=== PATIENT | male | born 1935 | race African-American/Black ===

== ENCOUNTER 2018-04-05 18:23 | Inpatient (IN) | payer OTHER, MEDICAID ==
[~2018-04-05] VITALS: Ht 165.1 cm; Wt 75.7 kg
[~2018-04-05 18:23] MED LIST: FERR325T6 PO; GLIP5TAB12 PO; METF850T2 PO; MOME13HF INH; PROAIR; SIMV40TA5 PO; SYMBICORT
[2018-04-05 20:21] LABS: BASOPHILS % 0.3 % (0.0-2.0); EOSINOPHILS % 1.4 % (0.0-5.0); HEMATOCRIT. 35.4 % (42.0-52.0); HEMOGLOBIN. 11.8 g/dL (14.0-18.0); LYMPHOCYTES % 20.2 % (20.0-50.0); MEAN CORPUSCULAR HEMOGLOBIN 32.3 pg (28.0-32.0); MEAN CORPUSCULAR VOLUME 96.8 fL (80.0-94.0); MEAN PLATELET VOLUME 8.5 fl (7.4-10.4); MONOCYTES % 8.7 % (2.0-8.0); NEUTROPHILS % 69.4 % (40.0-76.0); PLATELET 188 x1000/uL (130-400); RED BLOOD CELL COUNT 3.66 mill/uL (4.7-6.1); RED CELL DISTRIBUTION WIDTH 12.8 % (11.6-14.6)
[2018-04-05 20:36] LABS: INR 1.1; PROTHROMBIN TIME 11.5 sec (9.1-11.1)
[2018-04-05 20:55] LABS: CHLORIDE 105 mEq/L (98-107)
[2018-04-05] MEDS ORDERED: AMOXICILLIN/POTASSIUM CLAVULANATE 875/125MG TAB PO ONE (21:30)
[2018-04-05] MEDS ORDERED: ASPIRIN 81MG TABLET PO ONE (21:30)
[2018-04-05] MEDS ORDERED: HYDRALAZINE 20MG/ML VIAL IV ONE (21:45)
[2018-04-05 22:03] LABS: CLARITY URINE CLEAR (CLEAR); COLOR URINE YELLOW (YELLOW); KETONES URINE NEGATIVE (NEGATIVE); LEUKOCYTE ESTERASE URINE 2+ (NEGATIVE); NITRITE URINE POSITIVE (NEGATIVE); OCCULT BLOOD URINE NEGATIVE (NEGATIVE); PROTEIN URINE TRACE (NEGATIVE); SPECIFIC GRAVITY URINE 1.017 (1.005-1.030)
[2018-04-05 23:45] VITALS: BP 196/88
[2018-04-06] VITALS: BP 196/88
[2018-04-06] MEDS ORDERED: HYDROCODONE/ACETAMINOPHEN 5/325MG TABLET PO PRN (00:45)
[2018-04-06] MEDS ORDERED: ACETAMINOPHEN 325MG TABLET PO PRN (00:45)
[2018-04-06] MEDS: CLONIDINE 0.1MG TABLET PO PRN ×2 (01:22→12:10)
[2018-04-06] MEDS ORDERED: DEXTROSE 50% WATER 50ML SYRINGE IV PRN (03:30)
[2018-04-06 04:00] VITALS: BP 164/83
[2018-04-06] MEDS: BLOOD SUGAR DIAGNOSTIC STRIP TEST SCH ×4 (06:46→20:59)
[2018-04-06] MEDS: GLIPIZIDE 5MG TABLET PO SCH ×2 (06:51→18:06)
[2018-04-06 06:56] LABS: T4 FREE 0.8 ng/dL (0.76-1.46)
[2018-04-06] MEDS: INSULIN LISPRO 100 UNITS/ML SUBCUT SCH ×4 (07:15→20:58)
[2018-04-06 08:00] VITALS: BP 155/79
[2018-04-06] MEDS: ENOXAPARIN 40MG/0.4ML SYR SUBCUT SCH (08:36)
[2018-04-06] MEDS: ASPIRIN 81MG TABLET PO SCH (08:36)
[2018-04-06] MEDS: FERROUS SULFATE 325MG TABLET PO SCH ×2 (08:36→18:05)
[2018-04-06] MEDS: METFORMIN HCL 850MG TABLET PO SCH ×2 (08:36→18:05)
[2018-04-06] MEDS: AMLODIPINE 5MG TABLET PO SCH ×2 (08:36→21:14)
[2018-04-06 12:00] VITALS: BP 167/83
[2018-04-06] MEDS: LEVOFLOXACIN 500MG PREMIX 100 ML IV SCH (12:10)
[2018-04-06 16:00] VITALS: BP 154/91
[2018-04-06] MEDS ORDERED: ONDANSETRON HCL 4MG TABLET PO PRN (18:00)
[2018-04-06] MEDS ORDERED: ONDANSETRON HCL 4MG/2ML INJ IV NR (18:00)
[2018-04-06] MEDS ORDERED: SIMETHICONE 80MG TABLET CHEW PO PRN (18:30)
[2018-04-06] MEDS ORDERED: HYDRALAZINE 20MG/ML VIAL IV PRN (18:45)
[2018-04-06] MEDS ORDERED: METOCLOPRAMIDE HCL 10MG/2ML VIAL IV PRN (18:45)
[2018-04-06 19:28] LABS: HEMATOCRIT 35.3 % (42.0-52.0); HEMOGLOBIN 11.8 g/dL (14.0-18.0); MEAN CORPUSCULAR VOLUME 95.8 fL (80.0-94.0); PLATELET 187 x1000/uL (130-400); RED BLOOD CELL COUNT 3.68 mill/uL (4.7-6.1); RED CELL DISTRIBUTION WIDTH 12.9 % (11.6-14.6)
[2018-04-06 19:50] LABS: CHLORIDE 105 mEq/L (98-107)
[2018-04-06 20:00] VITALS: BP 159/82
[2018-04-06] MEDS ORDERED: NON FORMULARY PATIENT HOME MED EA XX SCH (21:00)
[2018-04-06] MEDS ORDERED: TEMAZEPAM 15MG CAPSULE PO PRN (21:00)
[2018-04-06] MEDS ORDERED: ATORVASTATIN CALCIUM 10MG TABLET PO SCH ×2 (21:00)
[2018-04-07] VITALS (8 sets, daily range): BP systolic 110–198; BP diastolic 70–98
[2018-04-07] MEDS: BLOOD SUGAR DIAGNOSTIC STRIP TEST SCH ×3 (06:09→16:36)
[2018-04-07] MEDS: GLIPIZIDE 5MG TABLET PO SCH (06:17)
[2018-04-07 06:41] LABS: BASOPHILS % 1.4 % (0.0-2.0); EOSINOPHILS % 4.3 % (0.0-5.0); HEMATOCRIT. 34.4 % (42.0-52.0); HEMOGLOBIN. 11.8 g/dL (14.0-18.0); LYMPHOCYTES % 32.7 % (20.0-50.0); MEAN CORPUSCULAR VOLUME 96.3 fL (80.0-94.0); MEAN PLATELET VOLUME 8.3 fl (7.4-10.4); MONOCYTES % 12.7 % (2.0-8.0); NEUTROPHILS % 48.9 % (40.0-76.0); PLATELET 172 x1000/uL (130-400); RED BLOOD CELL COUNT 3.57 mill/uL (4.7-6.1); RED CELL DISTRIBUTION WIDTH 12.9 % (11.6-14.6)
[2018-04-07] MEDS: INSULIN LISPRO 100 UNITS/ML SUBCUT SCH ×3 (07:15→16:36)
[2018-04-07 07:48] LABS: CHLORIDE 106 mEq/L (98-107)
[2018-04-07] MEDS: ASPIRIN 81MG TABLET PO SCH (08:03)
[2018-04-07] MEDS: FERROUS SULFATE 325MG TABLET PO SCH (08:03)
[2018-04-07] MEDS: METFORMIN HCL 850MG TABLET PO SCH (08:03)
[2018-04-07] MEDS: AMLODIPINE 5MG TABLET PO SCH (08:04)
[2018-04-07] MEDS: ENOXAPARIN 40MG/0.4ML SYR SUBCUT SCH (08:04)
[2018-04-07] MEDS ORDERED: CLOPIDOGREL 75MG TABLET PO SCH (09:00)
[2018-04-07] MEDS: LEVOFLOXACIN 500MG PREMIX 100 ML IV SCH (12:27)
[2018-04-07] MEDS ORDERED: FOLIC ACID 1MG TABLET PO SCH (15:00)
[2018-04-07 15:49] LABS: AMMONIA 32 uMol/L (<32)
[2018-04-07 17:22] LABS: *COCAINE SCREEN URINE NEGATIVE (NEGATIVE); METHADONE URINE SCREEN NEGATIVE (NEGATIVE); OPIATES URINE SCREEN PRESUMTIVE POSITIVE (NEGATIVE); PHENCYCLIDINE URINE SCREEN NEGATIVE (NEGATIVE)
[2018-04-07 17:23] LABS: *AMPHETAMINES SCREEN URINE NEGATIVE (NEGATIVE); *BARBITURATES SCREEN URINE NEGATIVE (NEGATIVE); *BENZODIAZEPINES SCREEN URINE NEGATIVE (NEGATIVE); CANNABINOID URINE SCREEN NEGATIVE (NEGATIVE)
== END 2018-04-07 17:10 | DRG 65 ==
LOC: ER 18:23 → 5WST 21:45 → EDBEDREQTM 21:53 → EDBEDREQ 21:53 → ENRESERV 21:59
PROVIDERS: ADMIT Internal Medicine; ATTEND Internal Medicine
DX: I63.9 Cerebral infarction, unspecified (principal); G81.94 Hemiplegia, unspecified affecting left nondominant side; D68.59 Other primary thrombophilia; N39.0 Urinary tract infection, site not specified; E11.65 Type 2 diabetes mellitus with hyperglycemia; D64.9 Anemia, unspecified; E78.5 Hyperlipidemia, unspecified; I71.4 Abdominal aortic aneurysm, without rupture; B96.1 Klebsiella pneumoniae [K. pneumoniae] as the cause of diseases classified elsewhere; Z86.79 Personal history of other diseases of the circulatory system; Z86.73 Personal history of transient ischemic attack (TIA), and cerebral infarction without residual deficits; Z79.84 Long term (current) use of oral hypoglycemic drugs; Z79.899 Other long term (current) drug therapy
CPT/HCPCS: 36415; 70450; 70551; 71045; 74018; 76775; 80048; 80053; 80061; 80305; 81003; 82140; 82962; 83036; 84439; 84443; 84484; 85025; 85027; 85610; 87040; 87077; 87086; 87186; 92610; 93005; 93306; 93880; 93970; 96374; 97162; 97167; 99285; J0360; J1650; J1956; J2405; J2765

== ENCOUNTER 2022-03-16 13:52 | Inpatient (IN) | payer OTHER, MEDICAID ==
[~2022-03-16] VITALS: Ht 175.3 cm; Wt 70.9 kg
[~2022-03-16 13:52] MED LIST changes: +METF-415 PO; -METF850T2 PO; -PROAIR; +SIMV-46 PO; -SIMV40TA5 PO; -SYMBICORT
[2022-03-16] MEDS ORDERED: SODIUM CHLORIDE 0.9% 250 ML IV ONE (14:30)
[2022-03-16] MEDS ORDERED: IOHEXOL-350 100 ML BOTTLE ONE (14:56)
[2022-03-16 15:45] LABS: BASOPHILS % 0.5 % (0.0-2.0); HEMATOCRIT. 34.5 % (42.0-52.0); HEMOGLOBIN. 11.4 g/dL (14.0-18.0); LYMPHOCYTES % 14.6 % (20.0-50.0); MEAN CORPUSCULAR HEMOGLOBIN 32.2 pg (28.0-32.0); MEAN CORPUSCULAR VOLUME 97.1 fL (80.0-94.0); MEAN PLATELET VOLUME 7.4 fl (7.4-10.4); MONOCYTES % 11.1 % (2.0-8.0); NEUTROPHILS % 73.8 % (40.0-76.0); PLATELET 182 x1000/uL (130-400); RED BLOOD CELL COUNT 3.55 mill/uL (4.7-6.1); RED CELL DISTRIBUTION WIDTH 12.9 % (11.6-14.6)
[2022-03-16 15:52] LABS: CHLORIDE 107 mEq/L (98-107)
[2022-03-16 16:01] LABS: INR 1.2
[2022-03-16 16:12] LABS: CREATINE KINASE 1452 IU/L (39-308); ETHANOL BLOOD < 10 mg/dL; LDL CHOLESTEROL 88 mg/dL (5-100)
[2022-03-16] MEDS ORDERED: ASPIRIN 81MG TABLET PO ONE (18:30)
[2022-03-16] MEDS ORDERED: FUROSEMIDE 20MG/2ML VIAL IVP ONE (18:30)
[2022-03-16 21:00] VITALS: BP 103/63
[2022-03-16] MEDS ORDERED: POTASSIUM CHLORIDE 20MEQ TABLET SR PO NR (23:45)
[2022-03-16] MEDS ORDERED: DEXTROSE 50% WATER 50ML SYRINGE IV PRN (23:45)
[2022-03-17] VITALS: BP 109/71
[2022-03-17] MEDS: CEFTRIAXONE 1,000 MG in DEXTROSE 5% WATER 50 ML IV SCH (03:23)
[2022-03-17 04:00] VITALS: BP 98/57
[2022-03-17 06:59] LABS: CLARITY URINE CLEAR (CLEAR); COLOR URINE YELLOW (YELLOW); KETONES URINE NEGATIVE (NEGATIVE); LEUKOCYTE ESTERASE URINE NEGATIVE (NEGATIVE); NITRITE URINE NEGATIVE (NEGATIVE); OCCULT BLOOD URINE TRACE (NEGATIVE); PROTEIN URINE TRACE (NEGATIVE); SPECIFIC GRAVITY URINE 1.021 (1.005-1.030); UROBILINOGEN URINE 0.2 E.U./dL (0.2-1.0)
[2022-03-17 07:14] LABS: *AMPHETAMINES SCREEN URINE NEGATIVE (NEGATIVE); *BARBITURATES SCREEN URINE NEGATIVE (NEGATIVE); *BENZODIAZEPINES SCREEN URINE NEGATIVE (NEGATIVE); *COCAINE SCREEN URINE NEGATIVE (NEGATIVE); CANNABINOID URINE SCREEN PRESUMTIVE POSITIVE (NEGATIVE); METHADONE URINE SCREEN NEGATIVE (NEGATIVE); OPIATES URINE SCREEN NEGATIVE (NEGATIVE); PHENCYCLIDINE URINE SCREEN NEGATIVE (NEGATIVE)
[2022-03-17] MEDS: BLOOD SUGAR DIAGNOSTIC STRIP TEST SCH ×4 (07:17→21:02)
[2022-03-17] MEDS: ACETAMINOPHEN 325MG TABLET PO PRN (07:19)
[2022-03-17 07:41] LABS: BASOPHILS % 0.6 % (0.0-2.0); EOSINOPHILS % 0.5 % (0.0-5.0); HEMATOCRIT. 35.4 % (42.0-52.0); HEMOGLOBIN. 11.6 g/dL (14.0-18.0); MEAN CORPUSCULAR HEMOGLOBIN 32.1 pg (28.0-32.0); MEAN CORPUSCULAR VOLUME 97.7 fL (80.0-94.0); MEAN PLATELET VOLUME 7.7 fl (7.4-10.4); MONOCYTES % 6.9 % (2.0-8.0); PLATELET 180 x1000/uL (130-400); RED BLOOD CELL COUNT 3.62 mill/uL (4.7-6.1); RED CELL DISTRIBUTION WIDTH 13.1 % (11.6-14.6)
[2022-03-17 08:00] VITALS: BP 109/70
[2022-03-17] MEDS: INSULIN LISPRO 100 UNITS/ML SUBCUT SCH ×4 (08:39→21:06)
[2022-03-17] MEDS: PANTOPRAZOLE 40MG DR TABLET PO SCH (08:40)
[2022-03-17] MEDS: FUROSEMIDE 40MG TABLET PO SCH (08:40)
[2022-03-17] MEDS: POTASSIUM CHLORIDE 20MEQ TABLET SR PO SCH (08:40)
[2022-03-17] MEDS: ASPIRIN 81MG TABLET PO SCH (08:40)
[2022-03-17] MEDS: ENOXAPARIN 40MG/0.4ML SYR SUBCUT SCH (08:40)
[2022-03-17] MEDS ORDERED: ATORVASTATIN CALCIUM 40MG TABLET PO SCH (09:00)
[2022-03-17] MEDS ORDERED: CEFTRIAXONE 1 G PREMIX 50 ML IV SCH (09:00)
[2022-03-17 12:00] VITALS: BP 115/79
[2022-03-17 16:00] VITALS: BP 138/79
[2022-03-17 17:02] LABS: CREATINE KINASE 1911 IU/L (39-308)
[2022-03-17 20:49] VITALS: BP 112/55
[2022-03-18] MEDS: ACETAMINOPHEN 325MG TABLET PO PRN (00:05)
[2022-03-18 00:41] VITALS: BP 97/58
[2022-03-18] MEDS: CEFTRIAXONE 1,000 MG in DEXTROSE 5% WATER 50 ML IV SCH (02:13)
[2022-03-18 04:00] VITALS: BP 135/78
[2022-03-18 06:41] LABS: BASOPHILS % 0.5 % (0.0-2.0); EOSINOPHILS % 3.1 % (0.0-5.0); HEMATOCRIT. 36.1 % (42.0-52.0); LYMPHOCYTES % 22.9 % (20.0-50.0); MEAN CORPUSCULAR HEMOGLOBIN 32.3 pg (28.0-32.0); MEAN CORPUSCULAR VOLUME 97.1 fL (80.0-94.0); MEAN PLATELET VOLUME 7.7 fl (7.4-10.4); NEUTROPHILS % 63.5 % (40.0-76.0); PLATELET 175 x1000/uL (130-400); RED BLOOD CELL COUNT 3.72 mill/uL (4.7-6.1); RED CELL DISTRIBUTION WIDTH 12.9 % (11.6-14.6)
[2022-03-18 06:46] LABS: CHLORIDE 106 mEq/L (98-107)
[2022-03-18] MEDS: BLOOD SUGAR DIAGNOSTIC STRIP TEST SCH ×4 (07:40→21:43)
[2022-03-18 08:00] VITALS: BP 109/73
[2022-03-18] MEDS: INSULIN LISPRO 100 UNITS/ML SUBCUT SCH ×4 (08:07→21:45)
[2022-03-18] MEDS: ASPIRIN 81MG TABLET PO SCH (09:17)
[2022-03-18] MEDS: FUROSEMIDE 40MG TABLET PO SCH (09:17)
[2022-03-18] MEDS: ENOXAPARIN 40MG/0.4ML SYR SUBCUT SCH (09:18)
[2022-03-18] MEDS: PANTOPRAZOLE 40MG DR TABLET PO SCH (09:18)
[2022-03-18] MEDS: POTASSIUM CHLORIDE 20MEQ TABLET SR PO SCH (09:18)
[2022-03-18 12:00] VITALS: BP 119/65
[2022-03-18 16:00] VITALS: BP 125/81
[2022-03-18 20:00] VITALS: BP 118/70
[2022-03-18] MEDS: ATORVASTATIN CALCIUM 40MG TABLET PO SCH (21:43)
[2022-03-19] VITALS: BP 122/72
[2022-03-19] MEDS: CEFTRIAXONE 1,000 MG in DEXTROSE 5% WATER 50 ML IV SCH (02:19)
[2022-03-19 04:00] VITALS: BP 123/76
[2022-03-19 07:03] LABS: BASOPHILS % 0.6 % (0.0-2.0); EOSINOPHILS % 4.6 % (0.0-5.0); HEMOGLOBIN. 11.5 g/dL (14.0-18.0); LYMPHOCYTES % 23.1 % (20.0-50.0); MEAN CORPUSCULAR HEMOGLOBIN 32.3 pg (28.0-32.0); MEAN CORPUSCULAR VOLUME 98.1 fL (80.0-94.0); MEAN PLATELET VOLUME 7.7 fl (7.4-10.4); MONOCYTES % 10.4 % (2.0-8.0); NEUTROPHILS % 61.3 % (40.0-76.0); PLATELET 196 x1000/uL (130-400); RED BLOOD CELL COUNT 3.57 mill/uL (4.7-6.1); RED CELL DISTRIBUTION WIDTH 12.7 % (11.6-14.6)
[2022-03-19] MEDS: BLOOD SUGAR DIAGNOSTIC STRIP TEST SCH ×4 (07:21→21:23)
[2022-03-19] MEDS: INSULIN LISPRO 100 UNITS/ML SUBCUT SCH ×4 (07:50→21:35)
[2022-03-19 08:00] VITALS: BP 130/73
[2022-03-19 08:01] LABS: CHLORIDE 107 mEq/L (98-107)
[2022-03-19] MEDS: FUROSEMIDE 40MG TABLET PO SCH (08:44)
[2022-03-19] MEDS: ENOXAPARIN 40MG/0.4ML SYR SUBCUT SCH (08:44)
[2022-03-19] MEDS: ASPIRIN 81MG TABLET PO SCH (08:44)
[2022-03-19] MEDS: FAMOTIDINE 20MG TABLET PO SCH (08:44)
[2022-03-19] MEDS: POTASSIUM CHLORIDE 20MEQ TABLET SR PO SCH (08:44)
[2022-03-19] MEDS: ACETAMINOPHEN 325MG TABLET PO PRN (08:49)
[2022-03-19] MEDS: CLOPIDOGREL 75MG TABLET PO SCH (10:09)
[2022-03-19 12:00] VITALS: BP 119/71
[2022-03-19 16:00] VITALS: BP 121/75
[2022-03-19] MEDS ORDERED: HYDROCODONE/ACETAMINOPHEN 5/325MG TABLET PO PRN (18:30)
[2022-03-19] MEDS ORDERED: NALOXONE HCL 0.4MG/ML VIAL IV PRN (18:45)
[2022-03-19] MEDS ORDERED: DEXT 5%/0.45% NACL 1000ML 1,000 ML IV SCH (18:45)
[2022-03-19 20:00] VITALS: BP 116/67
[2022-03-19] MEDS: ATORVASTATIN CALCIUM 40MG TABLET PO SCH (21:35)
[2022-03-20] VITALS: BP 109/64
[2022-03-20 04:00] VITALS: BP 119/78
[2022-03-20] MEDS: BLOOD SUGAR DIAGNOSTIC STRIP TEST SCH ×3 (07:19→16:53)
[2022-03-20] MEDS: INSULIN LISPRO 100 UNITS/ML SUBCUT SCH ×3 (07:19→17:15)
[2022-03-20 07:23] LABS: HEMATOCRIT. 35.5 % (42.0-52.0); HEMOGLOBIN. 11.8 g/dL (14.0-18.0); MEAN CORPUSCULAR HEMOGLOBIN 32.4 pg (28.0-32.0); MEAN CORPUSCULAR VOLUME 97.4 fL (80.0-94.0); MEAN PLATELET VOLUME 7.6 fl (7.4-10.4); PLATELET 230 x1000/uL (130-400); RED BLOOD CELL COUNT 3.65 mill/uL (4.7-6.1); RED CELL DISTRIBUTION WIDTH 12.7 % (11.6-14.6)
[2022-03-20 07:27] LABS: CHLORIDE 106 mEq/L (98-107)
[2022-03-20 08:00] VITALS: BP 116/57
[2022-03-20] MEDS: ENOXAPARIN 40MG/0.4ML SYR SUBCUT SCH (08:19)
[2022-03-20] MEDS: FUROSEMIDE 40MG TABLET PO SCH (08:20)
[2022-03-20] MEDS: CLOPIDOGREL 75MG TABLET PO SCH (08:20)
[2022-03-20] MEDS: POTASSIUM CHLORIDE 20MEQ TABLET SR PO SCH (08:20)
[2022-03-20] MEDS: FAMOTIDINE 20MG TABLET PO SCH (08:20)
[2022-03-20] MEDS: ASPIRIN 81MG TABLET PO SCH (08:20)
[2022-03-20] MEDS: ACETAMINOPHEN 325MG TABLET PO PRN ×2 (08:20→13:46)
[2022-03-20] MEDS ORDERED: REGADENOSON 0.4 MG/5 ML IV SCH (09:30)
[2022-03-20 12:00] VITALS: BP 130/68
[2022-03-20 13:17] LABS: PLATELET ESTIMATE NORMAL
[2022-03-20 15:57] VITALS: BP 118/61
[2022-03-20 18:02] VITALS: BP 136/72
== END 2022-03-20 19:00 | disposition home or self-care (01) | DRG 280 ==
LOC: ER 13:52 → EDBEDREQTM 14:27 → EDBEDREQSVC 14:27 → 7WST 17:12 → EDBEDREQTM 17:16 → EDBEDREQ 17:16 → ENRESERV 19:03 → ER 21:55
PROVIDERS: ADMIT Internal Medicine; ATTEND Internal Medicine
DX: I21.4 Non-ST elevation (NSTEMI) myocardial infarction (principal); G93.41 Metabolic encephalopathy; I69.354 Hemiplegia and hemiparesis following cerebral infarction affecting left non-dominant side; I48.91 Unspecified atrial fibrillation; E11.9 Type 2 diabetes mellitus without complications; E78.5 Hyperlipidemia, unspecified; I11.0 Hypertensive heart disease with heart failure; I45.10 Unspecified right bundle-branch block; I50.9 Heart failure, unspecified; Z20.822 Contact with and (suspected) exposure to COVID-19; I71.4 Abdominal aortic aneurysm, without rupture; R79.89 Other specified abnormal findings of blood chemistry; D72.829 Elevated white blood cell count, unspecified; F12.90 Cannabis use, unspecified, uncomplicated; Z82.49 Family history of ischemic heart disease and other diseases of the circulatory system; Z86.79 Personal history of other diseases of the circulatory system
CPT/HCPCS: 36415; 70496; 70498; 70551; 71045; 76775; 78452; 80048; 80053; 80061; 80305; 80320; 81003; 82550; 82962; 83036; 83721; 83880; 84484; 85025; 87077; 87186; 87426; 93005; 93017; 93306; 97162; 99291; A9500; J0696; J1650; J1815; J1940; J2785; J7050; J7060; Q9967; G0480

== ENCOUNTER 2024-03-08 04:36 | Inpatient (IN) | payer MEDICARE, MEDICAID, OTHER ==
[~2024-03-08] VITALS: Ht 165.1 cm; Wt 77.1 kg
[~2024-03-08 04:36] MED LIST changes: +ASPI-1497 MT; +FLUT1BLS3 INH; -GLIP5TAB12 PO; +GLIP5TAB22 PO; +LEVO250T74 MT; +METH4TAB95 MT; -MOME13HF INH
[2024-03-08 05:53] LABS: BASOPHILS % 1.5 % (0.0-2.0); EOSINOPHILS % 0.3 % (0.0-5.0); HEMATOCRIT. 37.7 % (42.0-52.0); HEMOGLOBIN. 12.6 g/dL (14.0-18.0); LYMPHOCYTES % 20.2 % (20.0-50.0); MEAN CORPUSCULAR HEMOGLOBIN 32.8 pg (28.0-32.0); MEAN CORPUSCULAR HGB CONC 33.3 g/dL (31.0-37.0); MEAN CORPUSCULAR VOLUME 98.3 fL (80.0-94.0); MEAN PLATELET VOLUME 9.3 fl (7.4-10.4); MONOCYTES % 13.5 % (2.0-8.0); NEUTROPHILS % 64.5 % (40.0-76.0); PLATELET 215 x1000/uL (130-400); RED BLOOD CELL COUNT 3.83 mill/uL (4.7-6.1); WHITE BLOOD COUNT 8.6 x1000/uL (4.5-11.0)
[2024-03-08 06:04] LABS: CHLORIDE 102 mEq/L (98-107); POTASSIUM 4.6 mEq/L (3.5-5.1); SODIUM 135 mEq/L (136-145)
[2024-03-08 06:05] LABS: CARBON DIOXIDE 26 mEq/L (21-32)
[2024-03-08 06:06] LABS: CALCIUM 9.6 mg/dL (8.7-10.4)
[2024-03-08 06:10] LABS: CREATININE 1.2 mg/dL (0.6-1.3); GLUCOSE 241 mg/dL (70-105); UREA NITROGEN BLOOD 28 mg/dL (9-23)
[2024-03-08 06:23] LABS: CLARITY URINE CLEAR (CLEAR); COLOR URINE YELLOW (YELLOW); GLUCOSE URINE TRACE (NEGATIVE); KETONES URINE NEGATIVE (NEGATIVE); LEUKOCYTE ESTERASE URINE 3+ (NEGATIVE); NITRITE URINE NEGATIVE (NEGATIVE); OCCULT BLOOD URINE TRACE (NEGATIVE); PH URINE 5.5 (4.5-8.0); PROTEIN URINE NEGATIVE (NEGATIVE); UROBILINOGEN URINE 0.2 E.U./dL (0.2-1.0)
[2024-03-08 07:30] LABS: BACTERIA URINE 2+; SQUAMOUS EPITHELIAL CELL URINE 1+ /lpf (RARE/1+); WBC URINE TNTC /hpf (0-2); YEAST URINE 1+
[2024-03-08] MEDS: KETOROLAC 30MG/ML VIAL IV ONE (07:50)
[2024-03-08 08:37] LABS: PROTHROMBIN TIME 11.6 sec (9.6-11.0)
[2024-03-08] MEDS: CEFTRIAXONE 1GM/50ML 50 ML IV ONE (08:57)
[2024-03-08] MEDS: IBUPROFEN 400MG TABLET PO ONE (10:01)
[2024-03-08 17:35] VITALS: BP 140/70; PULSE 88; RESP 18; TEMP 36.5292
[2024-03-08 20:00] VITALS: BP 98/62; PULSE 79; RESP 17; TEMP 36.28068; O2SAT 99
[2024-03-08] MEDS ORDERED: DEXTROSE 50% WATER 50ML SYRINGE IV PRN (20:00)
[2024-03-08] MEDS ORDERED: DOCUSATE SODIUM 100MG CAPSULE PO PRN (20:00)
[2024-03-08] MEDS ORDERED: IPRATROPIUM/ALBUTEROL 0.5-3(2.5)MG/3ML NEB HHN PRN (20:00)
[2024-03-08] MEDS ORDERED: ONDANSETRON HCL 4MG/2ML INJ IV PRN (20:00)
[2024-03-08] MEDS ORDERED: CLONIDINE 0.1MG TABLET PO PRN (20:00)
[2024-03-08] MEDS ORDERED: ACETAMINOPHEN 325MG TABLET PO PRN ×2 (20:00)
[2024-03-08] MEDS ORDERED: NALOXONE HCL 0.4MG/ML VIAL IV PRN (20:15)
[2024-03-08] MEDS ORDERED: HYDROCODONE/ACETAMINOPHEN 5/325MG TABLET PO PRN (20:15)
[2024-03-08] MEDS: METHYLPREDNISOLONE SOD SUCC 40MG/ML (ACT-O-VIAL) IV SCH (21:17)
[2024-03-08] MEDS: ENOXAPARIN 40MG/0.4ML SYR SUBCUT SCH (21:18)
[2024-03-08] MEDS: BLOOD SUGAR DIAGNOSTIC STRIP TEST SCH (21:18)
[2024-03-08] MEDS: INSULIN LISPRO 100 UNITS/ML SUBCUT SCH (21:20)
[2024-03-09] VITALS (11 sets, daily range): BP systolic 109–134; BP diastolic 66–75; PULSE 55–80; RESP 16–20; TEMP 36.114–36.3918; O2SAT 92–100
[2024-03-09] MEDS: IPRATROPIUM/ALBUTEROL 0.5-3(2.5)MG/3ML NEB HHN SCH (00:28)
[2024-03-09 06:24] LABS: EOSINOPHILS % 0.1 % (0.0-5.0); HEMOGLOBIN. 13.1 g/dL (14.0-18.0); LYMPHOCYTES % 17.4 % (20.0-50.0); MEAN CORPUSCULAR HEMOGLOBIN 32.4 pg (28.0-32.0); MEAN CORPUSCULAR HGB CONC 32.8 g/dL (31.0-37.0); MEAN CORPUSCULAR VOLUME 98.8 fL (80.0-94.0); MEAN PLATELET VOLUME 8.7 fl (7.4-10.4); MONOCYTES % 6.3 % (2.0-8.0); NEUTROPHILS % 75.2 % (40.0-76.0); PLATELET 222 x1000/uL (130-400); RED BLOOD CELL COUNT 4.05 mill/uL (4.7-6.1); RED CELL DISTRIBUTION WIDTH 12.9 % (11.6-14.6)
[2024-03-09 06:26] LABS: CHLORIDE 102 mEq/L (98-107); POTASSIUM 4.9 mEq/L (3.5-5.1); SODIUM 134 mEq/L (136-145)
[2024-03-09 06:27] LABS: CALCIUM 8.9 mg/dL (8.7-10.4); CARBON DIOXIDE 29 mEq/L (21-32)
[2024-03-09 06:29] LABS: PROTHROMBIN TIME 11.4 sec (9.6-11.0)
[2024-03-09] MEDS: GLIPIZIDE 5MG TABLET PO SCH (06:30)
[2024-03-09] MEDS: PANTOPRAZOLE 40MG DR TABLET PO SCH (06:30)
[2024-03-09 06:32] LABS: CREATININE 1.3 mg/dL (0.6-1.3); GLUCOSE 291 mg/dL (70-105)
[2024-03-09 06:33] LABS: LDL CHOLESTEROL 126 mg/dL (5-100); TRIGLYCERIDE 161 mg/dL (0-150); UREA NITROGEN BLOOD 31 mg/dL (9-23)
[2024-03-09 06:34] LABS: ALANINE AMINOTRANSFERASE 28 IU/L (10-49); ALBUMIN 3.6 g/dL (3.2-4.8); ASPARTATE AMINOTRANSFERASE 15 IU/L (<34); BILIRUBIN DIRECT 0.1 mg/dL (<=3.0); CHOLESTEROL 205 mg/dL (<200); HDL CHOLESTEROL 59 mg/dL (>55)
[2024-03-09 06:35] LABS: BILIRUBIN TOTAL 0.5 mg/dL (0.1-1.0); PHOSPHORUS 3.3 mg/dL (2.5-4.9); PROTEIN TOTAL 6.4 g/dL (6.0-8.3)
[2024-03-09] MEDS ORDERED: PANTOPRAZOLE SODIUM 40 MG/VIAL IV SCH (09:00)
[2024-03-09] MEDS: ASPIRIN 81MG TABLET PO SCH (09:17)
[2024-03-09] MEDS: PREDNISONE 20MG TABLET PO SCH (09:18)
[2024-03-09] MEDS: CEFTRIAXONE 1GM/50ML 50 ML IV SCH (09:21)
[2024-03-09 10:03] LABS: *AMPHETAMINES SCREEN URINE NEGATIVE (NEGATIVE)
[2024-03-09 10:04] LABS: *BARBITURATES SCREEN URINE NEGATIVE (NEGATIVE); *BENZODIAZEPINES SCREEN URINE NEGATIVE (NEGATIVE); *COCAINE SCREEN URINE NEGATIVE (NEGATIVE); CANNABINOID URINE SCREEN NEGATIVE (NEGATIVE); ECSTASY MDMA SCREEN URINE NEGATIVE (NEGATIVE); METHADONE URINE SCREEN NEGATIVE (NEGATIVE); OPIATES URINE SCREEN NEGATIVE (NEGATIVE); PHENCYCLIDINE URINE SCREEN NEGATIVE (NEGATIVE)
[2024-03-09] MEDS ORDERED: AMOX1TAB16 MT (11:26)
[2024-03-10] VITALS (8 sets, daily range): BP systolic 90–136; BP diastolic 60–76; PULSE 67–80; RESP 15–20; TEMP 36.114–36.44736; O2SAT 20–100
== END 2024-03-10 15:30 | disposition hospice, home (50) | DRG 728 ==
LOC: ER 04:42 → 5WST 09:37 → EDBEDREQ 09:40 → 6EST 18:10
PROVIDERS: ADMIT Internal Medicine; ATTEND Internal Medicine
DX: B37.49 Other urogenital candidiasis (principal); E11.9 Type 2 diabetes mellitus without complications; I10 Essential (primary) hypertension; J44.89 Other specified chronic obstructive pulmonary disease; F17.210 Nicotine dependence, cigarettes, uncomplicated; Z79.899 Other long term (current) drug therapy
CPT/HCPCS: 36415; 80048; 80061; 80076; 80305; 81003; 82962; 83036; 83735; 84100; 85025; 94640; 99285; C1893; J0696; J1650; J1815; J1885; J2920; J7512

== ENCOUNTER 2024-03-31 08:11 | Inpatient (IN) | payer MEDICARE, MEDICAID ==
[~2024-03-31] VITALS: Ht 160 cm; Wt 64.0 kg
[~2024-03-31 08:11] MED LIST changes: +AMOX1TAB16 MT; -LEVO250T74 MT
[2024-03-31 08:44] LABS: HEMATOCRIT. 33.3 % (42.0-52.0); HEMOGLOBIN. 11.1 g/dL (14.0-18.0); MEAN CORPUSCULAR HEMOGLOBIN 31.7 pg (28.0-32.0); MEAN CORPUSCULAR HGB CONC 33.3 g/dL (31.0-37.0); MEAN CORPUSCULAR VOLUME 95.2 fL (80.0-94.0); MEAN PLATELET VOLUME 6.6 fl (7.4-10.4); PLATELET 428 x1000/uL (130-400); RED CELL DISTRIBUTION WIDTH 12.7 % (11.6-14.6)
[2024-03-31 08:50] LABS: DIFFERENTIAL COMMENT 1
[2024-03-31 08:55] LABS: INR 1.1
[2024-03-31 09:15] LABS: CHLORIDE 101 mEq/L (98-107); SODIUM 136 mEq/L (136-145)
[2024-03-31 09:16] LABS: CALCIUM 9.7 mg/dL (8.7-10.4); CARBON DIOXIDE 30 mEq/L (21-32)
[2024-03-31 09:21] LABS: CREATININE 1.2 mg/dL (0.6-1.3); GLUCOSE 224 mg/dL (70-105); TROPONIN I HIGH SENSITIVITY 12 ng/L (3.0-53); UREA NITROGEN BLOOD 16 mg/dL (9-23)
[2024-03-31 09:23] LABS: ALANINE AMINOTRANSFERASE 12 IU/L (10-49); ALBUMIN 4.1 g/dL (3.2-4.8); ASPARTATE AMINOTRANSFERASE 13 IU/L (<34); BILIRUBIN DIRECT 0.2 mg/dL (<=3.0); BILIRUBIN TOTAL 0.7 mg/dL (0.1-1.0); PROTEIN TOTAL 6.7 g/dL (6.0-8.3)
[2024-03-31 10:20] LABS: ATYPICAL LYMPHOCYTES 1; PLATELET ESTIMATE SLIGHTLY INCREASED
[2024-03-31 17:06] LABS: TROPONIN I HIGH SENSITIVITY 13 ng/L (3.0-53)
[2024-03-31 20:00] VITALS: BP 120/76; PULSE 78; RESP 18; TEMP 35.94732; O2SAT 99
[2024-03-31] MEDS: DEXT 5%/0.45% NACL 1000ML 1,000 ML IV SCH (20:30)
[2024-03-31] MEDS ORDERED: DEXTROSE 50% WATER 50ML SYRINGE IV PRN (20:30)
[2024-03-31] MEDS: BLOOD SUGAR DIAGNOSTIC STRIP TEST SCH (21:00)
[2024-03-31 21:30] LABS: HEMOGLOBIN. 11.4 g/dL (14.0-18.0); MEAN CORPUSCULAR HEMOGLOBIN 31.6 pg (28.0-32.0); MEAN CORPUSCULAR HGB CONC 32.7 g/dL (31.0-37.0); MEAN CORPUSCULAR VOLUME 96.7 fL (80.0-94.0); MEAN PLATELET VOLUME 7.4 fl (7.4-10.4); PLATELET 402 x1000/uL (130-400); RED BLOOD CELL COUNT 3.62 mill/uL (4.7-6.1); WHITE BLOOD COUNT 6.6 x1000/uL (4.5-11.0)
[2024-03-31 21:35] LABS: DIFFERENTIAL COMMENT 1
[2024-03-31 22:00] VITALS: BP 120/76; PULSE 78; RESP 18; TEMP 35.9732
[2024-03-31] MEDS: INSULIN LISPRO 100 UNITS/ML SUBCUT SCH (22:22)
[2024-03-31] MEDS: MORPHINE SULFATE 2 MG/ML INJ (NOT FOR IM USE) IV PRN (22:24)
[2024-04-01 08:00] VITALS: BP 134/74; PULSE 82; RESP 20; TEMP 36.28068; O2SAT 97
[2024-04-01 08:01] LABS: CHLORIDE 104 mEq/L (98-107); POTASSIUM 3.7 mEq/L (3.5-5.1); SODIUM 138 mEq/L (136-145)
[2024-04-01 08:02] LABS: CARBON DIOXIDE 27 mEq/L (21-32)
[2024-04-01 08:03] LABS: CALCIUM 9.2 mg/dL (8.7-10.4)
[2024-04-01 08:07] LABS: CREATININE 0.9 mg/dL (0.6-1.3); GLUCOSE 176 mg/dL (70-105); UREA NITROGEN BLOOD 13 mg/dL (9-23)
[2024-04-01] MEDS: PANTOPRAZOLE SODIUM 40 MG/VIAL IV SCH (08:29)
[2024-04-01 09:49] LABS: HEPATITIS B SURFACE ANTIGEN NEGATIVE (Negative)
[2024-04-01 09:54] LABS: HEPATITIS C AB NON REACTIVE (Neg) (Negative)
[2024-04-01] MEDS ORDERED: REGADENOSON 0.4 MG/5 ML IV NR (10:30)
[2024-04-01 12:00] VITALS: BP 120/73; PULSE 77; RESP 19; TEMP 36.16956; O2SAT 96
[2024-04-01] MEDS: ENOXAPARIN 40MG/0.4ML SYR SUBCUT SCH (12:22)
[2024-04-01 16:00] VITALS: BP 125/72; PULSE 80; RESP 20; TEMP 36.16956; O2SAT 97
[2024-04-01 16:59] LABS: PLATELET ESTIMATE SLIGHTLY INCREASED
[2024-04-01 20:00] VITALS: BP 115/67; PULSE 88; RESP 18; TEMP 36.3918; O2SAT 95
[2024-04-02] VITALS (7 sets, daily range): BP systolic 102–138; BP diastolic 44–84; PULSE 66–100; RESP 14–20; TEMP 36.16956–37.05852; O2SAT 96–100
[2024-04-02] MEDS: IPRATROPIUM/ALBUTEROL 0.5-3(2.5)MG/3ML NEB HHN SCH (02:15)
[2024-04-02 08:24] LABS: CHLORIDE 103 mEq/L (98-107); POTASSIUM 3.7 mEq/L (3.5-5.1); SODIUM 136 mEq/L (136-145)
[2024-04-02 08:25] LABS: CARBON DIOXIDE 27 mEq/L (21-32)
[2024-04-02 08:26] LABS: CALCIUM 8.8 mg/dL (8.7-10.4)
[2024-04-02 08:29] LABS: MEAN CORPUSCULAR HEMOGLOBIN 31.9 pg (28.0-32.0); MEAN CORPUSCULAR HGB CONC 33.8 g/dL (31.0-37.0); MEAN CORPUSCULAR VOLUME 94.3 fL (80.0-94.0); MEAN PLATELET VOLUME 7.6 fl (7.4-10.4); PLATELET 353 x1000/uL (130-400); RED BLOOD CELL COUNT 3.02 mill/uL (4.7-6.1); RED CELL DISTRIBUTION WIDTH 12.7 % (11.6-14.6); WHITE BLOOD COUNT 5.8 x1000/uL (4.5-11.0)
[2024-04-02 08:30] LABS: CREATININE 0.9 mg/dL (0.6-1.3); GLUCOSE 271 mg/dL (70-105)
[2024-04-02 08:31] LABS: UREA NITROGEN BLOOD 12 mg/dL (9-23)
[2024-04-02 08:33] LABS: DIFFERENTIAL COMMENT 1
[2024-04-02 08:35] LABS: HEMOGLOBIN. 9.6 g/dL (14.0-18.0)
[2024-04-02 08:36] LABS: HEMATOCRIT. 28.5 % (42.0-52.0)
[2024-04-02] MEDS ORDERED: IOHEXOL-350 100 ML BOTTLE ONE (12:23)
[2024-04-02 19:09] LABS: PLATELET ESTIMATE NORMAL
[2024-04-03] VITALS (39 sets, daily range): BP systolic 96–153; BP diastolic 64–96; PULSE 82–138; RESP 16–37; TEMP 36.114–36.83628; O2SAT 92–100
[2024-04-03] MEDS: FAMOTIDINE 20MG/2ML VIAL IV SCH (08:58)
[2024-04-03] MEDS ORDERED: PNEUMOCOCCAL 20-VAL CONJ-DIP CRM 0.5ML IM ONE (09:00)
[2024-04-03] MEDS: METOCLOPRAMIDE HCL 10MG/2ML VIAL IV NR (10:18)
[2024-04-03] MEDS ORDERED: LIDOCAINE HCL 1% 20ML VIAL ONE (13:06)
[2024-04-03] MEDS ORDERED: HEPARIN 1000 UNITS/ML 10ML ONE (13:07)
[2024-04-03] MEDS ORDERED: IODIXANOL 320 MG/ML 150ML BOTTLE IV ONE (13:07)
[2024-04-03] MEDS ORDERED: IODIXANOL 320MG/ML 100 ML BOTTLE IV ONE ×2 (13:07→14:06)
[2024-04-03] MEDS ORDERED: MIDAZOLAM HCL 2 MG/2 ML VIAL ONE (13:12)
[2024-04-03] MEDS ORDERED: FENTANYL CITRATE/PF 50MCG/ML 2ML VIAL ONE (13:13)
[2024-04-03] MEDS ORDERED: CEFAZOLIN SODIUM 1000MG/VIAL ONE (13:20)
[2024-04-03] MEDS ORDERED: DIPHENHYDRAMINE 50MG/ML VIAL ONE (13:50)
[2024-04-03] MEDS ORDERED: HYDRALAZINE 20MG/ML VIAL ONE (14:10)
[2024-04-03] MEDS ORDERED: PROTAMINE SULFATE 10MG/ML VIAL 25ML IV ONE (14:41)
[2024-04-03] MEDS ORDERED: LABETALOL 5MG/ML 20ML VIAL IV ONE (14:45)
[2024-04-03 20:52] LABS: HEMATOCRIT. 32.1 % (42.0-52.0); HEMOGLOBIN. 10.6 g/dL (14.0-18.0); MEAN CORPUSCULAR HEMOGLOBIN 31.5 pg (28.0-32.0); MEAN CORPUSCULAR HGB CONC 33.1 g/dL (31.0-37.0); MEAN CORPUSCULAR VOLUME 95.3 fL (80.0-94.0); MEAN PLATELET VOLUME 7.8 fl (7.4-10.4); PLATELET 311 x1000/uL (130-400); RED BLOOD CELL COUNT 3.37 mill/uL (4.7-6.1); RED CELL DISTRIBUTION WIDTH 12.5 % (11.6-14.6); WHITE BLOOD COUNT 9.3 x1000/uL (4.5-11.0)
[2024-04-03 20:53] LABS: DIFFERENTIAL COMMENT 1
[2024-04-03] MEDS: HYDRALAZINE 20MG/ML VIAL IV PRN (20:54)
[2024-04-03 21:00] LABS: CHLORIDE 102 mEq/L (98-107); POTASSIUM 3.8 mEq/L (3.5-5.1); SODIUM 136 mEq/L (136-145)
[2024-04-03 21:01] LABS: CALCIUM 9.1 mg/dL (8.7-10.4); CARBON DIOXIDE 25 mEq/L (21-32)
[2024-04-03 21:06] LABS: GLUCOSE 259 mg/dL (70-105); UREA NITROGEN BLOOD 11 mg/dL (9-23)
[2024-04-03 21:41] LABS: PLATELET ESTIMATE NORMAL
[2024-04-03 21:42] LABS: ANISOCYTOSIS 1+
[2024-04-03] MEDS ORDERED: LORAZEPAM 0.5MG TABLET PO PRN (22:30)
[2024-04-04] VITALS (54 sets, daily range): BP systolic 117–196; BP diastolic 70–96; PULSE 98–133; RESP 21–36; TEMP 36.3918–37.61412; O2SAT 96–100
[2024-04-04] MEDS: LORAZEPAM 2MG/ML INJ IV PRN (04:03)
[2024-04-04 05:26] LABS: HEMATOCRIT. 28.2 % (42.0-52.0); HEMOGLOBIN. 9.4 g/dL (14.0-18.0); MEAN CORPUSCULAR HEMOGLOBIN 31.3 pg (28.0-32.0); MEAN CORPUSCULAR HGB CONC 33.3 g/dL (31.0-37.0); MEAN PLATELET VOLUME 7.5 fl (7.4-10.4); PLATELET 313 x1000/uL (130-400); RED CELL DISTRIBUTION WIDTH 12.8 % (11.6-14.6); WHITE BLOOD COUNT 13.7 x1000/uL (4.5-11.0)
[2024-04-04 05:33] LABS: CHLORIDE 103 mEq/L (98-107); POTASSIUM 3.6 mEq/L (3.5-5.1); SODIUM 135 mEq/L (136-145)
[2024-04-04 05:34] LABS: CALCIUM 8.9 mg/dL (8.7-10.4); CARBON DIOXIDE 23 mEq/L (21-32)
[2024-04-04 05:39] LABS: CREATININE 1.1 mg/dL (0.6-1.3); GLUCOSE 319 mg/dL (70-105); UREA NITROGEN BLOOD 13 mg/dL (9-23)
[2024-04-04 07:45] LABS: DIFFERENTIAL COMMENT 1
[2024-04-04 09:59] LABS: BG BASE EXCESS 2.5 mmol/L (-2.0-3.0); BG CARBOXYHEMOGLOBIN 0.3 % (0.5-1.5); BG DEOXYHEMOGLOBIN 6.1 % (0.0-5.0); BG HCO3 ACT 25.4 mmol/L (21.0-28.0); BG METHEMOGLOBIN 0.3 % (0.5-1.5); BG OXYGEN SATURATION 93.9 % (94.0-98.0); BG OXYHEMOGLOBIN 93.3 % (94.0-98.0); BG PCO2 32.8 mmHg (35.0-48.0); BG PH 7.506 (7.350-7.450); BG PO2 66.2 mmHg (83.0-108.0); BG SAMPLE SITE RIGHT RADIAL; BG TOTAL HEMOGLOBIN 10.6 g/dL (13.5-17.5); BG VENT MODE ROOM AIR
[2024-04-04] MEDS: METOPROLOL TARTRATE 25MG TABLET PO SCH (10:40)
[2024-04-04] MEDS ORDERED: NALOXONE HCL 0.4MG/ML VIAL IV PRN (11:00)
[2024-04-04] MEDS ORDERED: IOHEXOL-350 100 ML BOTTLE ONE (11:43)
[2024-04-04] MEDS: METHYLPREDNISOLONE SOD SUCC 40MG/ML (ACT-O-VIAL) IV SCH (12:01)
[2024-04-04] MEDS: AMLODIPINE 10MG TABLET PO SCH (13:30)
[2024-04-04] MEDS ORDERED: HYDRALAZINE 20MG/ML VIAL IV PRN (14:30)
[2024-04-04] MEDS: PIPERACILLIN/TAZO 3.375G/50ML 50 ML IV SCH (17:10)
[2024-04-04 20:12] LABS: PLATELET ESTIMATE NORMAL
[2024-04-04] MEDS: MORPHINE SULFATE 2 MG/ML INJ (NOT FOR IM USE) IV PRN (23:48)
[2024-04-05] VITALS (49 sets, daily range): BP systolic 137–172; BP diastolic 77–122; PULSE 86–116; RESP 0–32; TEMP 36.16956–37.00296; O2SAT 93–100
[2024-04-05] MEDS: ACETYLCYSTEINE 200MG/ML 20% VIAL 4ML INH SCH (04:40)
[2024-04-05 05:50] LABS: HEMATOCRIT. 30.2 % (42.0-52.0); HEMOGLOBIN. 9.7 g/dL (14.0-18.0); MEAN CORPUSCULAR HEMOGLOBIN 31.1 pg (28.0-32.0); MEAN CORPUSCULAR HGB CONC 32.2 g/dL (31.0-37.0); MEAN CORPUSCULAR VOLUME 96.3 fL (80.0-94.0); MEAN PLATELET VOLUME 7.7 fl (7.4-10.4); PLATELET 277 x1000/uL (130-400); RED BLOOD CELL COUNT 3.13 mill/uL (4.7-6.1); RED CELL DISTRIBUTION WIDTH 12.8 % (11.6-14.6); WHITE BLOOD COUNT 18.1 x1000/uL (4.5-11.0)
[2024-04-05 05:55] LABS: CHLORIDE 104 mEq/L (98-107); POTASSIUM 4.2 mEq/L (3.5-5.1); SODIUM 137 mEq/L (136-145)
[2024-04-05 05:56] LABS: CALCIUM 9.1 mg/dL (8.7-10.4); CARBON DIOXIDE 24 mEq/L (21-32)
[2024-04-05 06:01] LABS: CREATININE 1.1 mg/dL (0.6-1.3); GLUCOSE 295 mg/dL (70-105); UREA NITROGEN BLOOD 16 mg/dL (9-23)
[2024-04-05 06:19] LABS: DIFFERENTIAL COMMENT 1
[2024-04-05 06:54] LABS: ALANINE AMINOTRANSFERASE < 7 IU/L (10-49); ALBUMIN 3.5 g/dL (3.2-4.8); ASPARTATE AMINOTRANSFERASE 14 IU/L (<34); PROTEIN TOTAL 6.4 g/dL (6.0-8.3)
[2024-04-05 10:49] LABS: PLATELET ESTIMATE NORMAL
[2024-04-05] MEDS: METOPROLOL TARTRATE 25MG TABLET PO SCH (19:55)
[2024-04-06] VITALS (53 sets, daily range): BP systolic 124–165; BP diastolic 78–97; PULSE 82–118; RESP 16–38; TEMP 36.3918–36.89184; O2SAT 91–100
[2024-04-06 06:29] LABS: HEMOGLOBIN. 9.2 g/dL (14.0-18.0); MEAN CORPUSCULAR HEMOGLOBIN 31.3 pg (28.0-32.0); MEAN CORPUSCULAR HGB CONC 32.9 g/dL (31.0-37.0); MEAN CORPUSCULAR VOLUME 95.1 fL (80.0-94.0); MEAN PLATELET VOLUME 7.9 fl (7.4-10.4); PLATELET 296 x1000/uL (130-400); RED BLOOD CELL COUNT 2.95 mill/uL (4.7-6.1); RED CELL DISTRIBUTION WIDTH 12.9 % (11.6-14.6); WHITE BLOOD COUNT 18.8 x1000/uL (4.5-11.0)
[2024-04-06 06:31] LABS: CHLORIDE 104 mEq/L (98-107); POTASSIUM 3.9 mEq/L (3.5-5.1); SODIUM 138 mEq/L (136-145)
[2024-04-06 06:32] LABS: CALCIUM 9.5 mg/dL (8.7-10.4); CARBON DIOXIDE 25 mEq/L (21-32)
[2024-04-06 06:37] LABS: CREATININE 1.1 mg/dL (0.6-1.3); GLUCOSE 255 mg/dL (70-105); UREA NITROGEN BLOOD 24 mg/dL (9-23)
[2024-04-06 06:40] LABS: DIFFERENTIAL COMMENT 1
[2024-04-06 09:33] LABS: PLATELET ESTIMATE NORMAL
[2024-04-06] MEDS ORDERED: REGADENOSON 0.4 MG/5 ML IV ONE (09:36)
[2024-04-06] MEDS ORDERED: CAFFEINE CITRATE 20MG/ML 3ML VIAL IV ONE (09:37)
[2024-04-06] MEDS: INSULIN LISPRO 100 UNITS/ML SUBCUT SCH (18:58)
[2024-04-06] MEDS: INSULIN GLARGINE 100 UNITS/ML SUBCUT SCH (21:22)
[2024-04-07] VITALS (41 sets, daily range): BP systolic 141–184; BP diastolic 80–110; PULSE 72–108; RESP 15–29; TEMP 36.44736–36.72516; O2SAT 95–100
[2024-04-07] MEDS ORDERED: VANCOMYCIN HCL 1GM VIAL ONE (12:22)
[2024-04-07] MEDS ORDERED: BUPIVACAINE HCL/PF 0.25% (2.5MG/ML) 10ML ONE (12:22)
[2024-04-07] MEDS ORDERED: LIDOCAINE HCL/EPINEPHRINE 1%-EPI 1:100,000 20ML VIAL ONE (12:23)
[2024-04-07] MEDS ORDERED: ETOMIDATE 2MG/ML 10ML VIAL IV ONE (12:38)
[2024-04-07] MEDS ORDERED: ONDANSETRON HCL 4MG/2ML INJ ONE (12:38)
[2024-04-07] MEDS ORDERED: DEXAMETHASONE 4MG/ML 1ML VIAL ONE (12:38)
[2024-04-07] MEDS ORDERED: MIDAZOLAM HCL 2 MG/2 ML VIAL ONE (12:39)
[2024-04-07] MEDS ORDERED: PROPOFOL 200MG/20ML VIAL IV ONE (12:39)
[2024-04-07] MEDS ORDERED: FENTANYL CITRATE/PF 50MCG/ML 2ML VIAL ONE ×2 (12:39→13:04)
[2024-04-07] MEDS ORDERED: CEFAZOLIN 1000MG PREMIX 50ML IV SCH (14:00)
[2024-04-07] MEDS ORDERED: CEFAZOLIN SODIUM 1000MG/VIAL IV SCH (14:00)
[2024-04-07] MEDS: CEFAZOLIN 1000MG PREMIX 50ML IV SCH (14:36)
[2024-04-08] VITALS (9 sets, daily range): BP systolic 119–169; BP diastolic 76–102; PULSE 90–108; RESP 16–21; TEMP 35.8362–36.78072; O2SAT 91–100
[2024-04-08] MEDS: CEFAZOLIN 1000MG PREMIX 50ML IV SCH (07:57)
[2024-04-09] VITALS: BP 128/94; PULSE 97; RESP 18; TEMP 36.50292; O2SAT 95
[2024-04-09 04:00] VITALS: BP 129/95; PULSE 92; RESP 18; TEMP 36.61404; O2SAT 98
[2024-04-09 07:06] LABS: BASOPHILS % 0.2 % (0.0-2.0); EOSINOPHILS % 0.1 % (0.0-5.0); HEMATOCRIT. 24.3 % (42.0-52.0); HEMOGLOBIN. 7.9 g/dL (14.0-18.0); LYMPHOCYTES % 16.8 % (20.0-50.0); MEAN CORPUSCULAR HEMOGLOBIN 30.7 pg (28.0-32.0); MEAN CORPUSCULAR HGB CONC 32.6 g/dL (31.0-37.0); MEAN CORPUSCULAR VOLUME 94.3 fL (80.0-94.0); MEAN PLATELET VOLUME 7.9 fl (7.4-10.4); MONOCYTES % 14.6 % (2.0-8.0); NEUTROPHILS % 68.3 % (40.0-76.0); PLATELET 293 x1000/uL (130-400); RED BLOOD CELL COUNT 2.57 mill/uL (4.7-6.1); RED CELL DISTRIBUTION WIDTH 12.5 % (11.6-14.6); WHITE BLOOD COUNT 11.5 x1000/uL (4.5-11.0)
[2024-04-09 07:07] LABS: CHLORIDE 108 mEq/L (98-107); POTASSIUM 4.1 mEq/L (3.5-5.1); SODIUM 142 mEq/L (136-145)
[2024-04-09 07:08] LABS: CARBON DIOXIDE 27 mEq/L (21-32)
[2024-04-09 07:09] LABS: CALCIUM 9.5 mg/dL (8.7-10.4)
[2024-04-09 07:13] LABS: CREATININE 1.1 mg/dL (0.6-1.3); GLUCOSE 223 mg/dL (70-105); UREA NITROGEN BLOOD 32 mg/dL (9-23)
[2024-04-09 07:15] LABS: ALANINE AMINOTRANSFERASE 7 IU/L (10-49); ALBUMIN 3.6 g/dL (3.2-4.8)
[2024-04-09 07:16] LABS: BILIRUBIN TOTAL 0.8 mg/dL (0.1-1.0); PROTEIN TOTAL 6.2 g/dL (6.0-8.3)
[2024-04-09 07:24] LABS: ASPARTATE AMINOTRANSFERASE < 8 IU/L (<34)
[2024-04-09 08:00] VITALS: BP 125/80; PULSE 109; RESP 18; TEMP 36.3918; O2SAT 99
[2024-04-09 12:00] VITALS: BP 141/78; PULSE 78; TEMP 36.28068; O2SAT 100
[2024-04-09 16:00] VITALS: BP 139/72; PULSE 98; TEMP 36.28068; O2SAT 100
[2024-04-09 20:00] VITALS: BP 122/62; PULSE 90; RESP 20; TEMP 36.33624; O2SAT 98
[2024-04-10] VITALS: BP 127/67; PULSE 85; RESP 19; TEMP 36.72516; O2SAT 100
[2024-04-10 04:00] VITALS: BP 135/74; PULSE 87; RESP 19; TEMP 36.55848; O2SAT 100
[2024-04-10 08:00] VITALS: BP 147/72; PULSE 81; RESP 18; TEMP 36.3918; O2SAT 96
[2024-04-10 12:00] VITALS: BP 127/67; PULSE 93; RESP 18; TEMP 36.114; O2SAT 96
[2024-04-10 16:00] VITALS: BP 105/62; PULSE 93; RESP 18; TEMP 36.00288; O2SAT 98
[2024-04-10] MEDS: QUETIAPINE FUMARATE 25MG TABLET PO SCH (17:41)
[2024-04-10] MEDS: ENOXAPARIN 40MG/0.4ML SYR SUBCUT SCH (17:41)
[2024-04-10 18:21] LABS: HEMATOCRIT. 28.5 % (42.0-52.0); MEAN CORPUSCULAR HEMOGLOBIN 30.4 pg (28.0-32.0); MEAN CORPUSCULAR HGB CONC 31.7 g/dL (31.0-37.0); MEAN PLATELET VOLUME 8.1 fl (7.4-10.4); PLATELET 279 x1000/uL (130-400); RED BLOOD CELL COUNT 2.97 mill/uL (4.7-6.1); RED CELL DISTRIBUTION WIDTH 13.4 % (11.6-14.6); WHITE BLOOD COUNT 12.8 x1000/uL (4.5-11.0)
[2024-04-10 18:25] LABS: CARBON DIOXIDE 24 mEq/L (21-32); CHLORIDE 104 mEq/L (98-107); POTASSIUM 4.8 mEq/L (3.5-5.1); SODIUM 135 mEq/L (136-145)
[2024-04-10 18:26] LABS: CALCIUM 9.3 mg/dL (8.7-10.4)
[2024-04-10 18:28] LABS: DIFFERENTIAL COMMENT 1
[2024-04-10 18:30] LABS: CREATININE 1.2 mg/dL (0.6-1.3)
[2024-04-10 18:31] LABS: UREA NITROGEN BLOOD 29 mg/dL (9-23)
[2024-04-10 18:32] LABS: GLUCOSE 374 mg/dL (70-105)
[2024-04-10 19:17] LABS: NUCLEATED RED BLOOD CELLS 1 /100 WBC; PLATELET ESTIMATE NORMAL
[2024-04-10 20:00] VITALS: BP 122/71; PULSE 91; RESP 20; TEMP 36.16956; O2SAT 97
[2024-04-11] VITALS: BP 126/80; PULSE 98; RESP 18; TEMP 36.44736; O2SAT 98
[2024-04-11 04:00] VITALS: BP 115/70; PULSE 75; RESP 19; TEMP 36.6696; O2SAT 98
[2024-04-11 08:00] VITALS: BP 132/72; PULSE 85; RESP 18; TEMP 37.00296; O2SAT 96
[2024-04-11 12:00] VITALS: BP 108/64; PULSE 96; RESP 21; TEMP 36.00288; O2SAT 100
[2024-04-11 16:00] VITALS: BP 102/62; PULSE 97; RESP 18; TEMP 36.3918
[2024-04-11 20:00] VITALS: BP 136/70; PULSE 85; RESP 18; TEMP 36.55848; O2SAT 98
[2024-04-11] MEDS: INSULIN GLARGINE 100 UNITS/ML SUBCUT SCH (21:28)
[2024-04-12] VITALS: BP 119/66; PULSE 82; RESP 18; TEMP 36.3918; O2SAT 100
[2024-04-12 04:00] VITALS: BP 133/77; PULSE 70; RESP 18; TEMP 36.61404
[2024-04-12 08:00] VITALS: BP 128/73; PULSE 72; TEMP 36.89184
[2024-04-12 12:00] VITALS: BP 125/72; PULSE 113; RESP 18; TEMP 37.05852
[2024-04-12 16:00] VITALS: BP 112/69; PULSE 93; RESP 18; TEMP 36.89184
[2024-04-12] MEDS ORDERED: HYDRALAZINE 10 MG in SODIUM CHLORIDE 0.9% 49.5 ML IV PRN (16:30)
[2024-04-12 20:00] VITALS: BP 108/67; PULSE 79; RESP 18; TEMP 36.6696; O2SAT 88
[2024-04-13] VITALS: BP 115/71; PULSE 80; RESP 19; TEMP 36.61404; O2SAT 100
[2024-04-13 04:00] VITALS: BP 121/71; PULSE 91; RESP 18; TEMP 36.61404; O2SAT 97
[2024-04-13 08:00] VITALS: BP 118/67; PULSE 85; RESP 17; TEMP 36.61404; O2SAT 95
[2024-04-13 12:00] VITALS: BP 121/61; PULSE 82; RESP 17; TEMP 35.94732; O2SAT 96
[2024-04-13 12:30] VITALS: BP 118/67; PULSE 85; TEMP 97.7; O2SAT 96
== END 2024-04-13 12:30 | DRG 268 ==
LOC: ER 08:23 → 6WST 15:21 → EDBEDREQ 15:34 → EDBEDREQSVC 15:34 → EDBEDREQTM 15:34 → CVICU 04-03 15:05 → 7EST 04-08 01:50 → 6WST 04-11 15:30
PROVIDERS: ADMIT Internal Medicine; ATTEND Internal Medicine
PROC: 04V03DZ Restriction of Abdominal Aorta with Intraluminal Device, Percutaneous Approach (ICD-10-PCS; principal; 2024-04-03)
PROC: B4101ZZ Fluoroscopy of Abdominal Aorta using Low Osmolar Contrast (ICD-10-PCS; 2024-04-03)
PROC: 0QS734Z Reposition Left Upper Femur with Internal Fixation Device, Percutaneous Approach (ICD-10-PCS; 2024-04-07)
DX: I71.43 Infrarenal abdominal aortic aneurysm, without rupture (principal); G82.50 Quadriplegia, unspecified; S72.142A Displaced intertrochanteric fracture of left femur, initial encounter for closed fracture; M47.12 Other spondylosis with myelopathy, cervical region; G93.40 Encephalopathy, unspecified; K42.9 Umbilical hernia without obstruction or gangrene; M48.02 Spinal stenosis, cervical region; M25.78 Osteophyte, vertebrae; J44.9 Chronic obstructive pulmonary disease, unspecified; D64.9 Anemia, unspecified; I48.91 Unspecified atrial fibrillation; I10 Essential (primary) hypertension; R00.0 Tachycardia, unspecified; I25.10 Atherosclerotic heart disease of native coronary artery without angina pectoris; E11.9 Type 2 diabetes mellitus without complications; F03.90 Unspecified dementia, unspecified severity, without behavioral disturbance, psychotic disturbance, mood disturbance, and anxiety; X58.XXXA Exposure to other specified factors, initial encounter; Z51.5 Encounter for palliative care; Z86.79 Personal history of other diseases of the circulatory system; Z79.84 Long term (current) use of oral hypoglycemic drugs; Y93.89 Activity, other specified; Y99.8 Other external cause status; Y92.008 Other place in unspecified non-institutional (private) residence as the place of occurrence of the external cause
CPT/HCPCS: 36415; 36600; 71045; 71275; 72141; 72170; 73502; 73552; 74174; 74176; 76000; 78452; 80048; 80053; 80076; 82375; 82805; 82962; 83036; 83880; 84484; 85025; 85347; 86705; 86850; 86900; 87340; 90732; 93005; 93017; 93306; 93970; 94640; 99291; A9500; J0360; J0690; J0706; J1100; J1200; J1644; J1650; J1815; J2060; J2250; J2270; J2405; J2470; J2543; J2704; J2720; J2765; J2785; J2920; J3010; J3370; J3490; J7030; J7608; L1830; Q9967; C1713